=== PATIENT | female | born 1990 | race African-American/Black ===

== ENCOUNTER 2021-02-13 21:41 | Emergency (ER) | payer SELFPAY ==
[~2021-02-13] VITALS: Ht 167.6 cm; Wt 74.8 kg
--- NOTE | 2021-02-13 21:45 | NUR ---
CALLED PATIENT TO BE TRIAGED 3X. NOT IN WAITING ROOM. CALLED PT'S NUMBER ON FILE, NO ANSWER.
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
--- NOTE | 2021-02-13 22:08 | NUR ---
DR CAR[place] AT BED SIDE
--- NOTE | 2021-02-13 22:17 | NUR ---
PT UNABLE TO PROVIDE URINE SAMPLE AT THIS TIME. WAIVER SIGNED AND PLACED IN PT'S CHART
--- NOTE | 2021-02-13 22:20 | NUR ---
PT WAS TAKEN TO CT
[2021-02-13] MEDS ORDERED: ACETAMINOPHEN ES 500 MG TABLET ONE (22:30)
[2021-02-13] MEDS ORDERED: IBUPROFEN 600 MG TABLET ONE (22:30)
[2021-02-13] MEDS ORDERED: ACETAMINOPHEN ES 500 MG TABLET PO ONE (22:30)
[2021-02-13] MEDS ORDERED: IBUPROFEN 600 MG TABLET PO ONE (22:30)
--- NOTE | 2021-02-13 22:40 | NUR ---
PT RETURNED FROM CT
[2021-02-13] MEDS ORDERED: IBUP-1957 PO (23:27)
[2021-02-13] MEDS ORDERED: METH-406 PO (23:27)
--- NOTE | 2021-02-13 23:44 | NUR ---
pt is medically stable for DC. Patient discharged to home in stable condition. Rx and Written and verbal after care instructions given. Patient verbalizes understanding of instruction.
[2021-02-14 00:10] VITALS: BP 109/63
== END 2021-02-13 23:45 | disposition home or self-care (01) ==
LOC: ER 21:45
DX: S16.1XXA Strain of muscle, fascia and tendon at neck level, initial encounter (principal); S39.012A Strain of muscle, fascia and tendon of lower back, initial encounter; S00.83XA Contusion of other part of head, initial encounter; V49.49XA Driver injured in collision with other motor vehicles in traffic accident, initial encounter; Y93.89 Activity, other specified; Y92.413 State road as the place of occurrence of the external cause; Y99.8 Other external cause status
CPT/HCPCS: 70450-TC; 70486-TC; 71045-TC; 72125-TC; 72131-TC

== ENCOUNTER 2021-10-12 13:59 | Emergency (ER) | payer OTHER ==
[~2021-10-12] VITALS: Ht 167.6 cm; Wt 72.6 kg
[~2021-10-12 13:59] MED LIST: IBUP-1957 PO; METH-406 PO
[2021-10-12] MEDS ORDERED: ONDANSETRON HCL/PF 4 MG/2 ML VIAL IVP ONE (15:30)
[2021-10-12] MEDS ORDERED: IV NS 0.9% 1,000 ML BAG IV ONE (15:30)
[2021-10-12] MEDS ORDERED: ONDANSETRON HCL/PF 4 MG/2 ML VIAL ONE (15:44)
[2021-10-12 15:53] LABS: BILIRUBIN,URINE Negative (NEGATIVE); COLOR,URINE YELLOW (YELLOW); LEUKOCYTE ESTERASE ,URINE Trace (NEGATIVE); NITRITE, URINE Negative (NEGATIVE); PH,URINE 5.5 (5.0-8.0); PROTEIN,URINE Negative (NEGATIVE); UGLUCOSE Negative (NEGATIVE); UROBILINOGEN,URINE 0.2 EU/dL (0.2)
[2021-10-12 16:05] LABS: RBC,URINE 0-2 /HPF (0-2); WBC,URINE 0-3 /HPF (0-3)
[2021-10-12 16:06] LABS: BACTERIA,URINE Few /HPF (None Seen); SQUAMOUS EPITHELIAL CELL,UR Few /HPF (None Seen)
[2021-10-12 16:07] LABS: BASOPHILS % (AUTO) 0.6 % (0.0-2.0); EOSINOPHILS % (AUTO) 1.3 % (0.0-6.0); HEMATOCRIT 39 % (33-45); LYMPHOCYTES # (AUTO) 1.4 K/uL (0.8-4.8); LYMPHOCYTES % (AUTO) 32.9 % (20.0-44.0); MEAN CORPUSCULAR HGB CONC 33 g/dl (31.0-36.0); MEAN CORPUSCULAR VOLUME 87 fL (82-100); MONOCYTES # (AUTO) 0.3 K/uL (0.1-1.30); MONOCYTES % (AUTO) 6.5 % (2.0-12.0); NEUTROPHILS # (AUTO) 2.5 K/uL (1.8-8.9); NEUTROPHILS % (AUTO) 58.7 % (43.0-81.0); PLATELET COUNT (AUTO) 214 K/uL (150-450); RED BLOOD CELL COUNT(AUTO) 4.52 MIL/uL (4.0-5.2); WHITE BLOOD COUNT (AUTO) 4.3 K/uL (4.3-11.0)
[2021-10-12 16:17] LABS: CREATININE 0.9 mg/dL (0.6-1.3); POTASSIUM 3.5 mmol/L (3.5-5.1)
[2021-10-12 16:23] LABS: ALBUMIN 3.9 g/dL (3.4-5.0); BILIRUBIN,DIRECT 0.2 mg/dL (0.0-0.2); BILIRUBIN,TOTAL 0.6 mg/dL (0.2-1.0); TOTAL PROTEIN, SERUM 8.6 g/dL (6.4-8.2)
[2021-10-12] MEDS ORDERED: ONDA4TAB5 PO (16:31)
[2021-10-12] MEDS ORDERED: DIPH1TAB PO (16:31)
--- NOTE | 2021-10-12 17:30 | NUR ---
COVID TEST DONE & SENT TO LAB.
--- NOTE | 2021-10-12 17:43 | NUR ---
Patient discharged to home in stable condition. Written and verbal after care instructions given. Patient verbalizes understanding of instruction. IV removed. Catheter intact and site benign. Pressure and 4x4 applied to site. No bleeding noted.
[2021-10-12 18:10] VITALS: BP 109/71
== END 2021-10-12 17:45 | disposition home or self-care (01) ==
LOC: ER 14:57
DX: A08.4 Viral intestinal infection, unspecified (principal); Z20.822 Contact with and (suspected) exposure to COVID-19; Z86.16 Personal history of COVID-19
CPT/HCPCS: 36415; 80048; 80076; 81001; 83690; 84703; 85025; 87426; 96361; 96374; 99284; C9803; J2405; J7030; U0003